=== PATIENT | female | born 2000 | race Caucasian/White ===

== ENCOUNTER 2022-11-12 14:16 | Inpatient (IN) | payer OTHER ==
[2022-11-12 14:50] LABS: Urine Blood Trace-intact (Negative); Urine Glucose Negative (Negative); Urine Protein 2+ (Negative); Urine Specific Gravity 1.025 (1.005-1.030)
[2022-11-12 15:25] LABS: Absolute Lymphocytes (CBC) 3.3 K/uL (0.7-4.9); Hematocrit 44.2 % (36.0-45.0); Lymphocytes % 38.5 % (15.3-44.8); MCV 85.9 fL (80-100); MPV 7.4 fL (7.6-11.3); RBC Red Blood Cell Count 5.14 M/uL (3.86-4.86)
[2022-11-12 15:28] LABS: Urine Bacteria <20 /HPF (<20); Urine Crystals Unidentified Few /HPF (None Seen); Urine Mucus 3+ /HPF (None Seen); Urine WBC Clump Rare /HPF (None Seen)
[2022-11-12 15:28] LABS: Urine Specific Gravity/Preg 1.025 (1.005-1.030)
[2022-11-12] MEDS ORDERED: PROMETHAZINE INJ 25 MG/ML AMP ONE (15:43)
[2022-11-12] MEDS ORDERED: FENTANYL CITR 100 MCG/2 ML ONE ×2 (15:44→17:17)
[2022-11-12 15:46] LABS: Bilirubin Total 1.6 mg/dL (0.2-1.0); Potassium 3.4 mmol/L (3.5-5.1)
[2022-11-12 15:47] LABS: Albumin 4.3 g/dL (3.4-5.0); Protein, Total 7.7 g/dL (6.4-8.2)
[2022-11-12 15:48] LABS: SARS-CoV-2 Antigen Rapid Res Negative (Negative)
--- NOTE | 2022-11-12 16:19 | RAD REPORT ---
EXAM DESCRIPTION: CT - Abdomen Pelvis W Contrast - 11/12/2022 3:43 pm CLINICAL HISTORY: Abdominal pain/right lower quadrant pain COMPARISON: none. TECHNIQUE: Computed axial tomography of the abdomen pelvis was obtained. 100 cc Isovue-300 was admin istered intravenously. Oral contrast was not requested which limits evaluation of bowel and appendix All CT scans are performed using dose optimization technique as appropriate and may include automated exposure control or mA/KV adjustment according to patient size. FINDINGS: The liver, spleen, pancreas, adrenal and kidneys appear unremarkable. There is no evidence of diverticulitis. The appendix is not visualized. If the patient has clinical symptoms to suggest appendicitis then a C T scan with oral contrast and opacification of the terminal ileum/cecum may be helpful. No adnexal mass. No significant free fluid IMPRESSION: No acute abnormality is displayed.
--- NOTE | 2022-11-12 17:01 | EDPHYS ---
Physician Documentation [facility] Name: Aysha Hidalgo Age: 22 yrs Sex: Female : 2000 Arrival Date: 11/12/2022 Time: 14:18 Bed 6 Private MD: ED Physician Alexandr Buck HPI: 11/12 14:57 This 22 yrs old Female presents to ER via Ambulatory with complaints of Abdominal Pain. snw 14:57 The patient presents with abdominal pain right lower quadrant. Onset: The snw symptoms/episode began/occurred suddenly, 4 day(s) ago, and became worse today, and became persistent. The symptoms do not radiate. Associated signs and symptoms: Pertinent positives: nausea and vomiting. The symptoms are described as constant. Severity of pain: At its worst the pain was severe. The patient has not experienced similar symptoms in the past. The patient has been recently seen at an urgent care, just prior to arrival, for similar complaints, and was sent to the [facility] Emergency Department for further evaluation. 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 - Social history:: Smoking status: Patient denies any tobacco usage or history of. ROS: 14:58 Constitutional: Negative for fever, chills, and weight loss, Eyes: Negative for injury, snw pain, redness, and discharge, ENT: Negative for injury, pain, and discharge, Neck: Negative for injury, pain, and swelling, Cardiovascular: Negative for chest pain, palpitations, and edema, Respiratory: Negative for shortness of breath, cough, wheezing, and pleuritic chest pain, Back: Negative for injury and pain, : Negative for injury, bleeding, discharge, and swelling, MS/Extremity: Negative for injury and deformity, Skin: Negative for injury, rash, and discoloration, Neuro: Negative for headache, weakness, numbness, tingling, and seizure, Psych: Negative for depression, anxiety, suicide ideation, homicidal ideation, and hallucinations. 14:58 Abdomen/GI: Positive for abdominal pain, nausea and vomiting. Exam: 14:56 Constitutional: This is a well developed, well nourished patient who is awake, alert, snw and in no acute distress. Head/Face: Normocephalic, atraumatic. Eyes: Pupils equal round and reactive to light, extra-ocular motions intact. Lids and lashes normal. Conjunctiva and sclera are non-icteric and not injected. Cornea within normal limits. Periorbital areas with no swelling, redness, or edema. ENT: Nares patent. No nasal discharge, no septal abnormalities noted. Tympanic membranes are normal and external auditory canals are clear. Oropharynx with no redness, swelling, or masses, exudates, or evidence of obstruction, uvula midline. Mucous membranes moist. Neck: Trachea midline, no thyromegaly or masses palpated, and no cervical lymphadenopathy. Supple, full range of motion without nuchal rigidity, or vertebral point tenderness. No Meningismus. Chest/axilla: Normal chest wall appearance and motion. Nontender with no deformity. No lesions are appreciated. Cardiovascular: Regular rate and rhythm with a normal S1 and S2. No gallops, murmurs, or rubs. Normal PMI, no JVD. No pulse deficits. Respiratory: Lungs have equal breath sounds bilaterally, clear to auscultation and percussion. No rales, rhonchi or wheezes noted. No increased work of breathing, no retractions or nasal flaring. Back: No spinal tenderness. No costovertebral tenderness. Full range of motion. Skin: Warm, dry with normal turgor. Normal color with no rashes, no lesions, and no evidence of cellulitis. MS/ Extremity: Pulses equal, no cyanosis. Neurovascular intact. Full, normal range of motion. Neuro: Awake and alert, GCS 15, oriented to person, place, time, and situation. Cranial nerves II-XII grossly intact. Motor strength 5/5 in all extremities. Sensory grossly intact. Cerebellar exam normal. Normal gait. Psych: Awake, alert, with orientation to person, place and time. Behavior, mood, and affect are within normal limits. 14:56 Abdomen/GI: Inspection: abdomen appears normal, Bowel sounds: diminished, in all quadrants, Palpation: severe abdominal tenderness, in the right lower quadrant. Vital Signs: 14:23 BP 136 / 84; Pulse 100; Resp 16; Temp 98.1(TE); Pulse Ox 97% on R/A; Weight 61.69 kg; hb Height 5 ft. 8 in. (172.72 cm); Pain 7/10; 17:27 BP 107 / 78; Pulse 93; Resp 16; Temp 98.6(O); Pulse Ox 100% ; Pain 6/10; db 14:23 Body Mass Index 20.68 (61.69 kg, 172.72 cm) hb MDM: 14:34 Patient medically screened. snw 16:57 Data reviewed: vital signs, nurses notes. Data interpreted: Pulse oximetry: on room air snw is 97 %. Interpretation: normal. Counseling: I had a detailed discussion with the patient and/or guardian regarding: the historical points, exam findings, and any diagnostic results supporting the discharge/admit diagnosis, lab results, radiology results. Physician consultation: Oleg Dan MD was contacted at 16:58, regarding consult, and will see patient in ED, in the emergency department to see patient at 16:58. 11/12 14:39 Order name: CBC with Diff; Complete Time: 15:29 snw 11/12 14:39 Order name: CMP; Complete Time: 15:50 snw 11/12 14:39 Order name: Lipase; Complete Time: 15:50 snw 11/12 14:39 Order name: Urine Microscopic Only; Complete Time: 15:28 snw 11/12 14:39 Order name: SARS RAPID; Complete Time: 15:50 snw 11/12 14:50 Order name: Urine Dipstick-Ancillary; Complete Time: 14:55 EDMS 11/12 14:39 Order name: IV Saline Lock; Complete Time: 15:54 snw 11/12 14:39 Order name: Labs collected and sent; Complete Time: 15:54 snw 11/12 14:39 Order name: CT Abd/Pelvis - IV Contrast Only; Complete Time: 16:20 snw 11/12 14:51 Order name: Urine --Ancillary (enter results); Complete Time: 15:30 eb 11/12 14:39 Order name: Urine Test (obtain specimen); Complete Time: 15:54 snw Administered Medications: 15:58 Drug: fentaNYL (PF) 25 mcg Route: IVP; Site: right antecubital; iw 17:26 Follow up: Response: No adverse reaction db 15:58 Drug: Promethazine 25 mg Route: IM; Site: left gluteus; iw 17:26 Follow up: Response: No adverse reaction db 17:19 Drug: Zosyn (piperacillin-tazobactam) 3.375 grams Route: IVPB; Infused Over: 60 mins; db Site: left antecubital; 17:25 Follow up: Response: No adverse reaction; IV Status: Infusion continued upon admission db Disposition: 18:42 Co-signature as Attending Physician, Alexandr Buck MD. rn Disposition Summary: 11/12/22 17:01 Hospitalization Ordered Hospitalization Status: Inpatient Admission snw Provider: Oleg Dan snmonse Location: Telemetry/MedSurg (Inpatient) snw Condition: Stable snw Problem: new snw Symptoms: are unchanged snw Bed/Room Type: Standard snw Room Assignment: snw Diagnosis - Unspecified acute appendicitis snw Forms: - Medication Reconciliation Form snw - SBAR form snw Signatures: Dispatcher [employer] EDMS Katlyn Hernandez, FRAMEMAN-C FRAMEMAN-Csnw Iris Telles RN RN iw Alexandr Buck MD MD rn Baxter, Heather, RN RN hb Benton, Danielle, RN RN db Corrections: (The following items were deleted from the chart) 14:26 14:25 Home Meds: None; hb hb 14:26 14:25 PMHx: None; hb hb
--- NOTE | 2022-11-12 17:01 | ER ---
Nurse's Notes [facility] Name: Aysha Hidalgo Age: 22 yrs Sex: Female : 2000 Arrival Date: 11/12/2022 Time: 14:18 Bed 6 Private MD: Diagnosis: Unspecified acute appendicitis Presentation: 11/12 14:23 Chief complaint: Sent from urgent care for RLQ pain x 3 days, vomiting today. hb Coronavirus screen: Client presents with at least one sign or symptom that may indicate coronavirus-19. Provider contacted for isolation considerations. Ebola Screen: No symptoms or risks identified at this time. Initial Sepsis Screen: Does the patient meet any 2 criteria? No. Patient's initial sepsis screen is negative. Does the patient have a suspected source of infection? No. Patient's initial sepsis screen is negative. Risk Assessment: Do you want to hurt yourself or someone else? Patient reports no desire to harm self or others. Onset of symptoms was November 09, 2022. 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 - Social history:: Smoking status: Patient denies any tobacco usage or history of. Screenin:27 [facility] ED Fall Risk Assessment (Adult) History of falling in the last 3 months, db including since admission No falls in past 3 months (0 pts) Confusion or Disorientation No (0 pts) Intoxicated or Sedated No (0 pts) Impaired Gait No (0 pts) Mobility Assist Device Used No (0 pt) Altered Elimination No (0 pt) Score/Fall Risk Level 0 - 2 = Low Risk Oriented to surroundings, Maintained a safe environment. Abuse screen: Denies threats or abuse. Denies injuries from another. Nutritional screening: No deficits noted. Tuberculosis screening: No symptoms or risk factors identified. Assessment: 17:15 Reassessment: Patient appears in no apparent distress at this time. Patient and/or db family updated on plan of care and expected duration. Pain level reassessed. Patient is alert, oriented x 3, equal unlabored respirations, skin warm/dry/pink. Right lower abdominal pain. General: Appears in no apparent distress. Behavior is calm, cooperative, appropriate for age, quiet. Pain: Complains of pain in right lower quadrant. Neuro: No deficits noted. Level of Consciousness is awake, alert, obeys commands, Oriented to person, place, time, situation, Appropriate for age. Cardiovascular: No deficits noted. Respiratory: No deficits noted. GI: Bowel sounds present X 4 quads. Abd is soft Abdomen is tender to palpation in right lower quadrant. : No deficits noted. No signs and/or symptoms were reported regarding the genitourinary system. Vital Signs: 14:23 BP 136 / 84; Pulse 100; Resp 16; Temp 98.1(TE); Pulse Ox 97% on R/A; Weight 61.69 kg; hb Height 5 ft. 8 in. (172.72 cm); Pain 7/10; 17:27 BP 107 / 78; Pulse 93; Resp 16; Temp 98.6(O); Pulse Ox 100% ; Pain 6/10; db 14:23 Body Mass Index 20.68 (61.69 kg, 172.72 cm) hb ED Course: 14:18 Patient arrived in ED. rg4 14:20 [facility]C [facility] snw 14:20 Alexandr Buck MD is Attending Physician. snw 14:25 Triage completed. hb 14:26 Arm band placed on. hb 15:08 CBC with Diff Sent. mm9 15:08 CMP Sent. mm9 15:08 Lipase Sent. mm9 15:08 Inserted saline lock: 22 gauge in left forearm, using aseptic technique. Blood mm9 collected. 15:08 IV discontinued, intact, bleeding controlled, No redness/swelling at site. Pressure mm9 dressing applied. 15:37 Iris Telles, EVARISTO is Primary Nurse. iw 15:44 CT Abd/Pelvis - IV Contrast Only In Process Unspecified. EDMS 16:59 Oleg Dan MD is Hospitalizing Provider. snw 17:27 Patient has correct armband on for positive identification. Bed in low position. Call db light in reach. Side rails up X2. Pulse ox on. NIBP on. Warm blanket given. 17:27 Report given to report given to OR nurse. db 17:27 No provider procedures requiring assistance completed. db 17:29 Patient admitted, IV remains in place. db Administered Medications: 15:58 Drug: fentaNYL (PF) 25 mcg Route: IVP; Site: right antecubital; iw 17:26 Follow up: Response: No adverse reaction db 15:58 Drug: Promethazine 25 mg Route: IM; Site: left gluteus; iw 17:26 Follow up: Response: No adverse reaction db 17:19 Drug: Zosyn (piperacillin-tazobactam) 3.375 grams Route: IVPB; Infused Over: 60 mins; db Site: left antecubital; 17:25 Follow up: Response: No adverse reaction; IV Status: Infusion continued upon admission db Medication: 17:27 VIS not applicable for this client. db Outcome: 17:01 Decision to Hospitalize by Provider. snw 17:27 Admitted to OR accompanied by nurse, via wheelchair. db 17:27 Condition: stable 17:27 Instructed on the need for admit. 17:30 Patient left the ED. db Signatures: Dispatcher [employer] EDMS Katlyn Hernandez, POWERED BRIDGE SPECIALIST-C POWERED BRIDGE SPECIALIST-Csnw Iris Telles RN RN iw Katlyn Rogers RN RN Ana Del Toro rg4 Jacqueline Hensley, RN RN db Juanita Dan mm9 Corrections: (The following items were deleted from the chart) 14:26 14:25 Home Meds: None; hb hb 14:26 14:25 PMHx: None; hb hb
[2022-11-12] MEDS ORDERED: NEOSTIGMINE 1 MG/ML -5 ML ONE (17:17)
[2022-11-12] MEDS ORDERED: GLYCOPYRROLATE 0.2 MG/ML SYR ONE (17:17)
[2022-11-12] MEDS ORDERED: propofoL 200 MG/20 ML VIAL IV ONE (17:17)
[2022-11-12] MEDS ORDERED: dexAMETHasone 4 MG/ML VIAL ONE (17:17)
[2022-11-12] MEDS ORDERED: MIDAZOLAM HCL 2 MG/2 ML INJ ONE (17:17)
[2022-11-12] MEDS ORDERED: LIDOCAINE 1% MPF 5 ML VIAL ONE (17:17)
[2022-11-12] MEDS ORDERED: KETOROLAC 30 MG/ML INJ ONE (17:18)
[2022-11-12] MEDS ORDERED: ONDANSETRON 4 MG/2 ML VIAL ONE (17:18)
[2022-11-12] MEDS ORDERED: ROCURONIUM 50 MG/5 ML VIAL IV ONE (17:18)
[2022-11-12] MEDS ORDERED: PIPERACIL/TAZO 3.375 GM VIAL IV ONE ×2 (17:24→23:02)
[2022-11-12] MEDS ORDERED: NA CHLORIDE 0.9% 100 ML IV ONE (17:24)
[2022-11-12] MEDS ORDERED: Ringers Lactate 1,000 ML IV ONE (17:32)
[2022-11-12] MEDS ORDERED: ONDANSETRON 4 MG/2 ML VIAL IV PRN ×3 (18:09→22:51)
[2022-11-12] MEDS ORDERED: MORPHINE 4 MG/ML SYR IV PRN (18:09)
[2022-11-12] MEDS ORDERED: ACETAMINOPHEN 500 MG TAB PO PRN (18:09)
[2022-11-12] MEDS ORDERED: MEPERIDINE HCL 25 MG/ML SYR ONE (18:56)
[2022-11-12] MEDS ORDERED: D5 0.45 NS 1,000 ML IV SCH (19:00)
--- NOTE | 2022-11-12 19:05 | P.BOP ---
Preoperative diagnosis: acute appendicitis, peritonitis, RLQ abd pain Postoperative diagnosis: same Primary procedure: Laparoscopic appendectomy Estimated blood loss: <10cc Specimen: gwen Findings: see dicta Anesthesia: General Transferred to: Recovery Room Condition: Good
[2022-11-12 19:22] VITALS: O2SAT 100
[2022-11-12 20:57] VITALS: BMI 20.7
[2022-11-12] MEDS: HYDROCODONE/APAP 5/325 MG TAB PO PRN (21:39)
[2022-11-12] MEDS ORDERED: NA CHLORIDE 0.9% 1,000 ML IV SCH (23:00)
[2022-11-12] MEDS ORDERED: NA CHLORIDE 0.9% 1,000 ML ONE (23:02)
[2022-11-12] MEDS ORDERED: NA CHLORIDE 0.9% 100 ML ONE (23:03)
[2022-11-12] MEDS: PIPER TAZO 3.375 GM in NA CHLORIDE 0.9% 100 ML IV SCH (23:26)
[2022-11-12] MEDS: MORPHINE 2 MG/ML SYR IV PRN (23:27)
--- NOTE | 2022-11-13 02:42 | OP ---
Surgeon: Oleg Dan MD Preoperative Diagnoses: Acute appendicitis, peritonitis, right lower quadrant abdominal pain. Postoperative Diagnoses: Acute appendicitis, peritonitis, right lower quadrant abdominal pain. Procedure: Laparoscopic appendectomy. Estimated Blood Loss: Less than 10 mL. Specimens: Appendix. Findings: Asymmetrical in shape and color appendix, inflamed medial appendix, with erythema on it. The small bowel and large bowel with no extraluminal masses, liver with no masses seen anteriorly. S tomach, soft and compressible. Bilateral translucent ovarian cyst. Complications: None. Indications: This is the case of a 22-year-old patient who comes to us with peritonitis and right lo wer quadrant abdominal pain, has been sick for 3 days with nausea and vomiting. The CAT scan was inc onclusive. We cannot identify the appendix, although she never had appendectomy done before. She is very tender in the [place] area. So, we had discussed with her different options: We can repeat t he CAT scan again; also, we can do a diagnostic laparoscopy. Since the pain has been there for 4 day s, she preferred to have a diagnostic laparoscopy, laparoscopic appendectomy, possible open with bene fits, alternatives, and risks including, but not limited to infection, bleeding, damage to adjacent s tructures, anesthesia complication, negative appendix, AL, and even . She also understands this may not relieve symptoms. She might need more than one surgical intervention. She understood, sign ed a consent. Description Of Procedure: Patient was brought to the operating room, placed in supine position. Ane sthesia was given without complication. Abdominal area was prepped and draped in usual sterile fashi on. Marcaine 0.5% was injected for local anesthetic followed by sharp incision of the skin in the in fraumbilical region. Incision was carried down to fascia, which was opened under direct vision. Per itoneum was encountered, opened under direct vision. Vicryl #1 placed inside the fascia. Rian tro car was carefully introduced. Pneumoperitoneum was obtained. I placed 2 more trocars, 5 mm each one of them, in the suprapubic area in the left lower quadrant using same technique which consisted of l ocal anesthetic, sharp incision of the skin, introduction of the trocars under direct vision. This a llowed me to do the diagnostic lap first with the findings dictated above. After that, we noticed th at the base of the appendix was spared from disease, so we created a window in the base of the append ix, transected that with an Endo-BERTHA 45 mm nonvascular. Then, we did the mesoappendix with a combina tion of Endo-BERTHA 45 mm vascular and also because they have many adhesions to the gallbladder itself, we used LigaSure to minimize bleeding. Appendix removed from abdominal cavity using EndoCatch throug h the umbilical incision. The area was inspected once again, no bowel leak. No bleeding. At that m oment, I proceeded to remove the trocars under direct vision. Deflated pneumoperitoneum. Closed the fascia with #1 Vicryl. Irrigated the subcutaneous tissue, closed that with 3-0 chromic, and then th e skin in subcuticular fashion with 3-0 chromic and Steri-Strips on top. Sponge count and instrument counts correct. Patient tolerated the procedure well. Patient was sent to recovery in stable condi tion. TEN/COURTNEY Voice ID: [id number] Report ID: [id number]
[2022-11-13] MEDS ORDERED: PIPER TAZO 3.375 GM in NA CHLORIDE 0.9% 100 ML IV SCH (05:00)
--- NOTE | 2022-11-13 05:21 | HP ---
Date of Admission: 11/12/2022 Reason For Service: Right lower quadrant abdominal pain, peritonitis, appendicitis. History Of Present Illness: This is the case of a 22-year-old patient, comes to us with right lower quadrant abdominal pain, nausea, and vomiting. It has been about 2 days worse, although even day #3, she is starting to have the symptoms. She denies any dysuria, hematuria, hematochezia, or melena. Denies any recent travel out of the country. Denies any family member sick at home. She has history of ovarian cyst, but she noticed this pain is completely different. It is mainly in the right lower quadrant, exquisite pain when she was seen by the ER. The CAT scan was inconclusive and a surgical consult was obtained for evaluation. Allergies: NONE. Medications: Include levothyroxine. Past Surgical History: Include tonsillectomy. Social History: She does not smoke. She does not drink alcohol. Family History: Noncontributory. Review of Systems: Positive for nausea, vomiting, and right lower quadrant abdominal pain. Ten points otherwise unremar kable. Physical Examination: General: The patient is awake and alert. HEENT: Pupils are equal and reactive. Anicteric. Neck: Supple. Chest: Clear. Abdomen: Right lower quadrant tenderness with guarding. Rovsing sign and psoas signs positive. Exq uisite pain with peritonitis. Breasts: Deferred. Rectal: Deferred. Pelvic: Deferred. Extremities: Good capillary refill. Neuro: Cranial nerves 2 through 12 grossly within normal limits. Laboratory Data: WBC count shows 8.7, hemoglobin of 15.3. Potassium 3.4, chloride is 109. Total bi lirubin of 1.6. Lipase 124. UA shows rbcs 5-10. CAT scan of the abdomen and pelvis, I discussed th e case with the radiologist. Due to the inconclusive findings, appendix is difficult to visualize in that area. I discussed with her the pros and cons of the CAT scan since the patient is clinically h ave appendicitis, we will proceed with surgery. Other than that, she states she has history of polyc ystic ovarian cyst. No renal mass. No diverticulitis. The liver, spleen, pancreas, and kidneys are unremarkable. Assessment: This is a 22-year-old patient with peritonitis and exquisite right lower quadrant pain. It has been at least 2-3 days with nausea and vomiting. When you palpate that abdomen, she just jum p. Clinically, with the peritonitis, I offered her diagnostic laparoscopic possible open appendectom y with benefits, alternatives, and risks include, but not limited to infection, bleeding, damage to a djacent structures, anesthesia complication, negative appendix, negative , GA, and even josi th. She also understands this may not relieve the symptoms. She might need more than one surgical i ntervention. She signed the consent. The OR was emergently called. TEN/COURTNEY Voice ID: [id number]
[2022-11-13] MEDS: PIPER TAZO 3.375 GM in NA CHLORIDE 0.9% 100 ML IV SCH ×2 (05:29→11:15)
[2022-11-13] MEDS: MORPHINE 2 MG/ML SYR IV PRN (05:47)
[2022-11-13 06:08] LABS: Absolute Lymphocytes (CBC) 1.5 K/uL (0.7-4.9); Hematocrit 37.4 % (36.0-45.0); Lymphocytes % 15.9 % (15.3-44.8); MCV 87.2 fL (80-100); MPV 7.6 fL (7.6-11.3); RBC Red Blood Cell Count 4.28 M/uL (3.86-4.86)
[2022-11-13 06:10] LABS: Potassium 4.6 mmol/L (3.5-5.1)
[2022-11-13] MEDS: HYDROCODONE/APAP 5/325 MG TAB PO PRN ×3 (06:22→15:32)
[2022-11-13 14:08] VITALS: BP 96/54; TEMP 98.6
--- NOTE | 2022-11-13 18:27 | P.DS ---
Admission Date: 11/12/22 Discharge Date: 11/13/22 Disposition: ROUTINE DISCHARGE Discharge Condition: GOOD - Problems (1) Acute appendicitis with generalized peritonitis Status: Acute Qualifiers: Appendicitis gangrene presence: without gangrene Appendicitis abscess presence: without abscess Hospital Course: unremarkable Vital Signs/Physical Exam: Temp Pulse Resp BP Pulse Ox 98.6 F 58 18 96/54 L 99 11/13/22 12:00 11/13/22 12:00 11/13/22 15:32 11/13/22 12:00 11/13/22 15:32 General: Alert, In no apparent distress, Oriented x3, Cooperative HEENT: Atraumatic, PERRLA Neck: Supple Cardiovascular: No edema, Normal pulses Gastrointestinal: Soft and benign Musculoskeletal: No erythema, No tenderness, No warmth Integumentary: No rashes, No breakdown, No warmth, No cyanosis Neurological: Normal speech Laboratory Data at Discharge: WBC 9.30 K/uL (4.3-10.9) 11/13/22 05:34 Hgb 12.7 g/dL (12.0-15.0) D 11/13/22 05:34 Hct 37.4 % (36.0-45.0) 11/13/22 05:34 Plt Count 282 K/uL (152-406) 11/13/22 05:34 Sodium 140 mmol/L (136-145) 11/13/22 05:34 Potassium 4.6 mmol/L (3.5-5.1) D 11/13/22 05:34 BUN 8 mg/dL (7-18) 11/13/22 05:34 Creatinine 0.96 mg/dL (0.55-1.02) 11/13/22 05:34 Glucose 136 mg/dL (74-106) H 11/13/22 05:34 Total Bilirubin 1.6 mg/dL (0.2-1.0) H 11/12/22 15:08 AST 19 U/L (15-37) 11/12/22 15:08 ALT 24 U/L (13-56) 11/12/22 15:08 Alkaline Phosphatase 52 U/L (45-117) 11/12/22 15:08 Lipase 124 U/L (73-393) 11/12/22 15:08 Physician Discharge Instructions: Keep area dry for 42h then may remove outer dressing and shower. Place triple abx ointment after. Diet: AHA Activity: No lifting more than 10 lbs Followup: Oleg Dan MD [ACTIVE - CAN ADMIT] - 1 Week NONE,NONE [Primary Care Provider] -
== END 2022-11-13 16:34 | disposition home or self-care (01) | DRG 343 ==
LOC: ER 14:16 → ERHOLD 18:14 → 2ND-WC 18:20
PROVIDERS: ADMIT Surgery; ATTEND Surgery
PROC: 0DTJ4ZZ Resection of Appendix, Percutaneous Endoscopic Approach (ICD-10-PCS; principal; 2022-11-12 18:00)
DX: K35.20 Acute appendicitis with generalized peritonitis, without abscess (principal); Z79.890 Hormone replacement therapy; Z20.822 Contact with and (suspected) exposure to COVID-19
CPT/HCPCS: 36415; 74177; 80048; 80053; 81003; 81015; 81025; 83690; 85025; 87811; 88304; 96372; 99285; J1100; J2001; J2175; J2250; J2270; J2405; J2543; J2550; J2704; J2710; J3010; J7030; J7120; Q9967